=== PATIENT | female | born 1990 | race American Indian/Alaskan Native ===

== ENCOUNTER 2021-10-08 03:04 | Emergency (ER) | payer OTHER ==
[2021-10-08] MEDS ORDERED: SULFAMETHOXAZOLE/TRIMETHOPRIM 800/160MG DS TAB PO ONE (03:48)
[2021-10-08] MEDS ORDERED: IBUPROFEN 600 MG TAB PO ONE (03:48)
--- NOTE | 2021-10-08 03:53 | Emergency Department Report ---
ED General Adult HPI - General Chief complaint: Skin/Abscess/Foreign Body Stated complaint: SKIN RASH Source: patient, family Mode of arrival: Ambulatory Limitations: No Limitations - History of Present Illness Initial comments: Patient is a 31-year-old is -[place] female with no past medical history presented to the ED with complaint of acute onset persistent bilateral painful breast nipples with thick purulent discharge for the last 1 week, worse in the last 2 days. Patient states that she had nipple piercings performed about 6 months ago but in the last 1 week she has had intermittent bilateral nipple pain and noticed that there was some purulent discharge draining from the right breast nipple. Patient stated that she initially thought that it was due to a perfume that she had sprayed on herself. Patient denies dizziness, syncope, nausea and vomiting, fever, chills, chest pain or shortness of breath or traumatic injury. MD Complaint: Painful, infected bilateral nipple piercings -: Sudden, week(s) (1) Location: chest (Bilateral nipples) Radiation: non-radiation Severity scale (0 -10): 7 Quality: aching, sharp Consistency: constant Improves with: none Worsens with: none Associated Symptoms: denies other symptoms, chest pain (Painful bilateral nipple piercings), rash (Mild erythematous maculopapular rash on bilateral nipple piercings with thick purulent discharge). denies: confusion, cough, diaphoresis, fever/chills, headaches, loss of appetite, malaise, nausea/vomiting, seizure, shortness of breath, syncope, weakness Treatments Prior to Arrival: none - Related Data Previous Rx's Medication Instructions Recorded Last Taken Type Ibuprofen [Motrin] 600 mg PO Q8H PRN #30 tablet 10/08/21 Unknown Rx Sulfamethoxazole/Trimethoprim 1 each PO Q12H #20 10/08/21 Unknown Rx [Bactrim DS TAB] Allergies Allergy/AdvReac Type Severity Reaction Status Date / Time No Known Allergies Allergy Unverified 10/08/21 03:18 ED Review of Systems ROS: Stated complaint: SKIN RASH Other details as noted in HPI Constitutional: denies: chills, fever Eyes: denies: eye pain, eye discharge, vision change ENT: denies: ear pain, throat pain Respiratory: denies: cough, shortness of breath, wheezing Cardiovascular: denies: chest pain, palpitations Endocrine: no symptoms reported Gastrointestinal: denies: abdominal pain, nausea, diarrhea Genitourinary: denies: urgency, dysuria, discharge Musculoskeletal: denies: back pain, joint swelling, arthralgia Skin: rash (Painful, erythemic mildly erythematous maculopapular fluctuant rash on bilateral nipple piercings with thick purulent discharge), change in color. denies: lesions, change in hair/nails Neurological: denies: headache, weakness, paresthesias Psychiatric: denies: anxiety, depression Hematological/Lymphatic: denies: easy bleeding, easy bruising ED Past Medical Hx - Past Medical History Previous Medical History?: No - Surgical History Past Surgical History?: No - Social History Smoking Status: Never Smoker Substance Use Type: Marijuana - Medications Home Medications: Home Medications Medication Instructions Recorded Confirmed Last Taken Type Ibuprofen [Motrin] 600 mg PO Q8H PRN #30 tablet 10/08/21 Unknown Rx Sulfamethoxazole/Trimethoprim 1 each PO Q12H #20 10/08/21 Unknown Rx [Bactrim DS TAB] ED Physical Exam - General Limitations: No Limitations General appearance: alert, in no apparent distress - Head Head exam: Present: atraumatic, normocephalic, normal inspection - Eye Eye exam: Present: normal appearance, PERRL, EOMI Pupils: Present: normal accommodation - ENT ENT exam: Present: normal exam, normal orophraynx, mucous membranes moist, TM's normal bilaterally, normal external ear exam - Neck Neck exam: Present: normal inspection, full ROM. 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 Giordano, patient showed palpable tenderness on bilateral nipple piercings with thick purulent discharge and mild erythematous rashes). Absent: respiratory distress, wheezes, rales, stridor, chest wall tenderness, accessory muscle use, decreased breath sounds - Cardiovascular Cardiovascular Exam: Present: normal rhythm, tachycardia, normal heart sounds. Absent: systolic murmur, diastolic murmur, rubs, gallop - GI/Abdominal GI/Abdominal exam: Present: soft, normal bowel sounds. Absent: tenderness, guarding, rebound, hyperactive bowel sounds, hypoactive bowel sounds, bruit - Extremities Exam Extremities exam: Present: normal inspection, full ROM, normal capillary refill - Back Exam Back exam: Present: normal inspection, full ROM. Absent: tenderness, CVA tenderness (R), CVA tenderness (L), muscle spasm, paraspinal tenderness, vertebral tenderness - Neurological Exam Neurological exam: Present: alert, oriented X3, CN II-XII intact, normal gait, reflexes normal - Psychiatric Psychiatric exam: Present: normal affect, normal mood - Skin Skin exam: Present: warm, dry, intact, normal color, rash (Palpable tenderness on bilateral nipple piercings due to mild erythematous maculopapular rash with thick purulent discharge), erythema ED Course Vital Signs 10/08/21 03:13 Temperature 98.3 F Pulse Rate 101 H Respiratory 18 Rate Blood Pressure 130/98 O2 Sat by Pulse 100 Oximetry ED Medical Decision Making - Medical Decision Making This is a 31-year-old is -[place] female with no past medical history presented to the ED with complaint of acute onset persistent bilateral painful breast nipples with thick purulent discharge for the last 1 week, worse in the last 2 days. Patient states that she had nipple piercings performed about 6 months ago but in the last 1 week she has had intermittent bilateral nipple pain and noticed that there was some purulent discharge draining from the right breast nipple. Patient stated that she initially thought that it was due to a perfume that she had sprayed on herself. In the ED, patient is alert and oriented x3 and is not in any distress. Patient was treated for pain in the ED and was given initial oral antibiotics. The nipple piercings were unscrewed and removed and the wounds cleaned extensively with normal saline. 4 x 4 gauzes were used to dress the wounds and the patient tolerated the procedure well. Patient was therefore discharged home on antibiotics and pain medications and advised to follow-up with her primary care physician in 7 to 10 days for reevaluation. Patient was advised to return to the ED immediately if symptoms get worse. - Differential Diagnosis Cellulitis; mastitis; nipple abscess Critical care attestation.: If time is entered above; I have spent that time in minutes in the direct care of this critically ill patient, excluding procedure time. ED Disposition Clinical Impression: Cellulitis of female breast Granulomatous mastitis, unspecified breast Qualifiers: Laterality: bilateral Qualified Code(s): N61.23 - Granulomatous mastitis, bilat eral breast Disposition: 01 HOME / SELF CARE / HOMELESS Is pt being admited?: No Does the pt Need Aspirin: No Condition: Stable Instructions: Mastitis, [id number], Skin Abscess, [id number], Cellulitis, Adult, [id number] Additional Instructions: Take medication with food, drink plenty fluids and follow-up with the primary care physician in 7 to 10 days for reevaluation. Return to the ED immediately if symptoms get worse. Prescriptions: Sulfamethoxazole/Trimethoprim [Bactrim DS TAB] 1 each PO Q12H #20 Ibuprofen [Motrin] 600 mg PO Q8H PRN #30 tablet PRN Reason: Pain Referrals: [facility] [Provider Group] - 7-10 days Time of Disposition: 03:54 Print Language: UGANDAN
[2021-10-08 05:04] VITALS: BP 127/84
== END 2021-10-08 05:09 | disposition home or self-care (01) ==
LOC: ED 03:04
DX: N61.0 Mastitis without abscess (principal); N61.23 Granulomatous mastitis, bilateral breast
CPT/HCPCS: 99283